=== PATIENT | male | born 1965 | race Caucasian/White ===

== ENCOUNTER 2017-10-01 08:21 | Inpatient (IN) ==
--- NOTE | 2017-10-01 08:09 | Anesthesia Evaluation PreOp ---
Date of Encounter: 10/01/17 Time of Encounter: 08:53 - Past History Planned Operation: Right Total Shoulder Cardiac History: HTN, Hyperlipidemia Pulmonary History: Former smoker (quit 2009, smoked for 30 years) FUR CLIPPER History: Denies Any Significant HX Other Medical History: GERD, Other (H/O DVT) Anesthesia History: No Prior Anesthetic Complications, Past Anesthesia Alcohol Use: rarely Drug use: marijuana Medications and Allergies Atazanavir Sulfate [Reyataz] 150 mg PO BID 07/14/16 [History] Citalopram Hydrobromide [Celexa] 40 mg PO DAILY 07/14/16 [History] Diclofenac Sodium [Voltaren] 1 appl TP QID PRN 07/14/16 [History] Donepezil HCl [Aricept] 10 mg PO DAILY 07/14/16 [History] Duloxetine HCl [Cymbalta] 30 mg PO DAILY 07/14/16 [History] Ketoconazole Shampoo [Nizoral Shampoo] 0 ml TP AD 07/14/16 [History] Lamivudine/Zidovudine [Combivir] 1 tab PO BID 07/14/16 [History] Oxycodone HCl [Roxicodone 30 MG Immed Release] 30 mg PO Q6HR 07/14/16 [History] Ranitidine HCl [Zantac] 150 mg PO BID 07/14/16 [History] Ritonavir [Norvir] 100 mg PO DAILY 07/14/16 [History] SUMAtriptan Succinate [Imitrex] 100 mg PO DAILY PRN 07/14/16 [History] hydrOXYzine HCl [Hydroxyzine HCl] 25 mg PO TID 07/14/16 [History] LORazepam [Ativan] 1 mg PO DAILY PRN 10/01/17 [History] Memantine [Namenda] 5 mg PO HS 10/01/17 [History] 3 Allergy/AdvReac Type Severity Reaction Status Date / Time codeine AdvReac Headache Verified 07/14/16 12:53 fentanyl AdvReac Headache Verified 07/14/16 12:52 - Meds/Allergy Pre-op Review Medications Reviewed: Yes Allergies Reviewed: Yes Beta Blockers on Current Med List: No Anesthesia Results - Labs Laboratory Tests 08/25/17 08/25/17 19:28 19:28 WBC 5.0 Hgb 13.0 Hct 38.2 Plt Count 217 Sodium 136 Potassium 4.4 BUN 11 Creatinine 0.94 - Imaging EKG: report reviewed (10/01/2017 SR) Additional studies: 10/02/2012 Echo * Normal left ventricular size and systolic function. * LVEF 60% * Normal right ventricular size and function. * No significant valvular dysfunction. * The estimated RVSP was 30 mmHg as estimated by Doppler. * There is no pulmonary hypertension. Anesthesia Exam O2 Sat Height 1.75 m Height 1.75 m Weight 77.111 kg Weight 77.111 kg O2 Sat by Pulse Oximetry 98 Vital Signs Temp Pulse Resp BP Pulse Ox 97.7 F 71 18 123/81 98 10/01/17 08:33 10/01/17 08:33 10/01/17 08:33 10/01/17 08:33 10/01/17 08:33 Height: 5'9'' Weight: 170 lbs NPO (# of Hours): 8 Pain Scale: 0 Pain Scale Used: Numeric (1 - 10) - HEENT Pupil (Motor): EOMI Mallampati: II Teeth: Poor dentition Oral Opening: Greater than 3 - FUR CLIPPER LOC: Oriented FUR CLIPPER Motor: Normal RUE, Normal LUE, Normal RLE, Normal LLE, Normal Face FUR CLIPPER Sensory: Normal: RUE, LUE, RLE, LLE, Face - Cardiac Rhythm: Regular Murmur: None - Pulmonary Breath Sounds: bilateral Clear Respiratory Effort: Symmetrical Anesthesia Assess/Plan ASA Score: 2 Modified [place] Scale for Level of Consciousness: Cooperative, oriented, and tranquil Anesthetic Plan: General, Regional Monitoring Plan: Standard Monitors Recovery Plan: PACU
[2017-10-01] MEDS ORDERED: *HR* Promethazine 25 MG/ML VIAL IVP PRN (08:47)
[2017-10-01] MEDS ORDERED: *HR* OxyCODONE Immed Rel 5 MG TABLET PO PRN (08:47)
[2017-10-01] MEDS ORDERED: *HR* Labetalol 100 MG/20 ML MDV IVP PRN (08:47)
[2017-10-01] MEDS ORDERED: MORPHINE SUL Oral CONC 10 MG/0.5 ML ORAL.SYG SL PRN (08:47)
[2017-10-01] MEDS ORDERED: *HR* Propofol 200 MG/20 ML VIAL IVP ONE (08:53)
[2017-10-01] MEDS ORDERED: *HR* Midazolam HCl 2 MG/2 ML VIAL ONE (08:53)
[2017-10-01] MEDS ORDERED: Ondansetron 4 MG/2 ML VIAL ONE (08:53)
[2017-10-01] MEDS ORDERED: CeFAZolin Syr 2,000MG/20 ML 2,000 MG/20 ML SYRINGE IVPB ONE (09:04)
[2017-10-01] MEDS ORDERED: Lidocaine -MPF 1% 2 ML VIAL ID ONE (09:04)
[2017-10-01] MEDS ORDERED: Albuterol 2.5 MG/3 ML NEBULIZER IH ONE (09:04)
[2017-10-01] MEDS: Ringers Solution, Lactated 1,000 ML IVC SCH ×3 (09:22→16:47)
--- NOTE | 2017-10-01 09:35 | History & Physical Report ---
Date of Encounter: 10/01/17 Time of Encounter: 09:35 24 Hour HP Update - Instructions Instructions: If the History and Physical is less than 30 days old and was completed prior to A.M. admission and or procedure and has NOT been updated on calendar day of procedure please complete this update prior to performing procedure. - Update Patient reports changes in Medical Condition: No Changes in examination, assessment, or condition: No Changes in Medication: No Preop tests/diagnostics Reviewed: Yes Surgery Remains Indicated: Yes Consent for Planned Operative Procedure(s) Verified: Yes - Pre-Operative Checklist Preoperative Checklist Indicated: No Prophylactic Antibiotic Ordered: Yes Is VTE Prophylaxis Indicated?: Yes
--- NOTE | 2017-10-01 09:37 | Discharge Summary ---
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 Qualifiers: Encounter type: subsequent encounter Qualified Code(s): T84.038D - Mechanical loosening of other internal prosthetic joint, subsequent encounter; Z96.619 - Presence of unspecified artificial shoulder joint; Z96.619 - Presence of unspecified artificial shoulder joint (2) Status post total replacement of right shoulder Priority: Secondary Status: Chronic (3) Hyperlipidemia Priority: Secondary Status: Chronic Qualifiers: Hyperlipidemia type: unspecified Qualified Code(s): E78.5 - Hyperlipidemia , unspecified (4) HIV (human immunodeficiency virus infection) Priority: Secondary Status: Chronic (5) Hypertension Priority: Secondary Status: Chronic Qualifiers: Hypertension type: unspecified Qualified Code(s): I10 - Essential (primary ) hypertension - Hospital Course Hospital course: Mr. Diaz is a 51 year old male Status post revision right total shoulder. The patient had an uneventful postoperative course. They received antibiotics and physical therapy and were discharged in stable condition. There will follow -up in the office in 2 weeks. - Time Spent with Patient Total time spent providing and/or coordinating discharge services: - Discharge Medications Home Medications: Atazanavir Sulfate [Reyataz] 150 mg PO BID 07/14/16 [History] Citalopram Hydrobromide [Celexa] 40 mg PO DAILY 07/14/16 [History] Diclofenac Sodium [Voltaren] 1 appl TP QID PRN 07/14/16 [History] Donepezil HCl [Aricept] 10 mg PO DAILY 07/14/16 [History] Duloxetine HCl [Cymbalta] 30 mg PO DAILY 07/14/16 [History] Ketoconazole Shampoo [Nizoral Shampoo] 0 ml TP AD 07/14/16 [History] Lamivudine/Zidovudine [Combivir] 1 tab PO BID 07/14/16 [History] Oxycodone HCl [Roxicodone 30] 30 mg PO Q6HR 07/14/16 [History] Ranitidine HCl [Zantac] 150 mg PO BID 07/14/16 [History] Ritonavir [Norvir] 100 mg PO DAILY 07/14/16 [History] SUMAtriptan Succinate [Imitrex] 100 mg PO DAILY PRN 07/14/16 [History] hydrOXYzine HCl [Hydroxyzine HCl] 25 mg PO TID 07/14/16 [History] LORazepam [Ativan] 1 mg PO DAILY PRN 10/01/17 [History] Memantine [Namenda] 5 mg PO HS 10/01/17 [History] Allergies/Adverse Reactions: 3 Allergy/AdvReac Type Severity Reaction Status Date / Time codeine AdvReac Headache Verified 07/14/16 12:53 fentanyl AdvReac Headache Verified 07/14/16 12:52 Primary care physician: Sin German MD - Patient Status Disposition: Home, Self-Care Condition: Good Functional capacity at discharge: independent ambulation Overall status at discharge: patient is progressing back to baseline - Discharge Instructions Follow Up With: Sin German MD [Primary Care Provider] -
[2017-10-01] MEDS ORDERED: *HR* Succinylcholine 200 MG/10 ML VIAL IVP ONE (10:20)
[2017-10-01] MEDS ORDERED: Lidocaine -MPF 2% 2 ML VIAL ONE (10:20)
[2017-10-01] MEDS ORDERED: ROPIVACAINE HCL/PF 0.5% 30 ML VIAL ONE (10:33)
[2017-10-01] MEDS ORDERED: Bupivacaine/Clonidine Syringe 1 EACH SYRINGE ONE (10:34)
[2017-10-01] MEDS ORDERED: Ethanol\\Acetic Acid\\Na Ace\\Ben 1,000 ML IRRIG.SOLN IR ONE (10:49)
[2017-10-01] MEDS ORDERED: Lidocaine -MPF 4% 5 ML AMPUL ONE (11:11)
--- NOTE | 2017-10-01 11:17 | Anesthesia Procedures ---
Date of Encounter: 10/01/17 Time of Encounter: 10:54 Procedures: Anesthesia - Nerve Block Procedure Date: 10/01/17 Time: 10:54 Surgical Procedure: right total shoulder revision Checklist: Correct Patient Identifier, Correct procedure, History checked Correct side: Right Blood Thinner: No Monitor Applied: BP, Pulse Oximetry Sedation: Versed (mg): 4 Indication: Post Op Analgesia Block Type: Supraclavicular Catheter placed: No Sterile Technique: Yes Ultrasound used: Yes Anatomy identified: Yes Visual spread of Local: Yes Neuro Stimulation: No Blood on Needle Aspiration: No Smooth Injection of Local: Yes Pain with Injection of Local: No Prep: Chlorhexadine Needle: 22 x 50 mm Stimuplex Local: 0.25% Bupivicaine w/Clonidine 20 mcg/cc (10 for SCP, 10 for T2), Ropivacaine (30ml 0.5% rop plain) Volume (cc): 50 Number of Attempts: 1 Complications: None/effective block Vitals: vss though out, block per request of surgeon
[2017-10-01] MEDS ORDERED: *HR* FentaNYL (PF) 100 MCG/2 ML VIAL ONE (11:45)
[2017-10-01] MEDS ORDERED: EPHEDrine 50 MG/ML VIAL ONE (11:54)
--- NOTE | 2017-10-01 12:17 | Orthopedic Operative Note ---
Date of procedure: 10/01/17 Pre-op diagnosis: Aseptic loosening right total shoulder Post-op diagnosis: same Procedure: Procedure: Right Revision Total Shoulder replacement reverse Estimated blood loss: 100 cc Hardware: Arthrex: Metal and plastic. Large glenoid baseplate, 24.5 screws and one 6.5 screw, 9 humeral stem 3 Wendy spacer Procedural Notes: Aseptic loosening humeral component. Operative procedure: The patient was brought to the operating room and placed on the operating room table. The patient was placed in the modified beachchair position. All pressure points were padded appropriately. And the head was stabilized in the neutral position. The operative extremity was prepped and draped in the sterile surgical fashion. The patient received IV antibiotics prior to skin incision. A standard deltopectoral approach was made to the operative shoulder. Incision was made through the old incision, through the skin and subcutaneous tissue, hemo stasis was obtained with Bovie cautery. Using careful blunt dissection the the deltopectoral interval was developed and the clavipectoral fascia was incised. An extensive debridement was performed, and the shoulder was dislocated. Using an osteotome to clear out the soft tissue, the humeral component was gently removed. It was grossly loose. Anterior and posterior Bankart retractors were used to expose the glenoid, the glenoid component was removed without incident using an osteotome. The glenoid guide was seated the centering hole was made the glenoid was reamed with the appropriate reamer. The glenoid baseplate was seated and secured and locked in place with one 6.5 screw and 2, 4.5 screws. The baseplate was irrigated and dried glenosphere was seated and secured. Attention was then turned to the humeral side. The humerus was reamed and broached up to its appropriate size 9 in 20 degrees of retroversion. Trial reduction found the shoulder to be relocatable. Trial components were removed, real implants were seated. Trial reduction found the shoulder to be stable with the appropriate 3 Wendy implant The trial implants were removed the real implants were seated and secured in the shoulder was reduced. The patient had excellent motion and excellent stability no shuck. The deep tissue was irrigated with pulse irrigation deltopectoral interval was closed with #2 PDS suture . Superficially the subcutaneous tissue was closed with 0 PDS suture, the skin was closed with skin harlan. The patient placed sterile dressing, postoperative brace extubated and transferred to the recovery room in stable condition. Anesthesia: GETA Surgeon: Ellis Moya Was there an office support assistant present: No Estimated blood loss (cc): 100 Condition: stable Disposition: PACU
[2017-10-01 12:43] LABS: Hematocrit 36.3 % (37.5-50.1); Hemoglobin 12.3 g/dL (12.9-16.9)
--- NOTE | 2017-10-01 13:00 | Anesthesia Evaluation Post Op ---
Date of Encounter: 10/01/17 Time of Encounter: 12:59 - Vital Signs Vital Signs: Vital Signs/O2 Sat, Most Current Temp Pulse Resp BP Pulse Ox 98.2 F 73 16 126/83 98 10/01/17 12:24 10/01/17 12:44 10/01/17 12:44 10/01/17 12:44 10/01/17 12:44 - Lungs Lungs: Clear Ascult./Percussion - Airway Airway: Non-obstructed - Cardiovascular Regular Rate - Mental Status Mental Status: Alert & Oriented, Answers Appropriately - Pain Pain Scale: 0 Pain Scale used: Numeric (1 - 10) - Nausea Vomiting Nausea Vomiting: Not Present - Hydration Hydration: NPO, Has not voided - Discharge PostOp Status: Transfer Patient to floor
[2017-10-01] MEDS ORDERED: Sennosides 8.6 MG TABLET PO PRN (13:43)
[2017-10-01] MEDS ORDERED: Ondansetron 4 MG/2 ML VIAL IVP PRN (13:43)
[2017-10-01] MEDS ORDERED: MOM Conc 10 ML UD.LIQ PO PRN (13:43)
[2017-10-01] MEDS ORDERED: SUMAtriptan succinate 50 MG TABLET PO PRN (13:43)
[2017-10-01] MEDS ORDERED: Temazepam 15 MG CAPSULE PO PRN (13:43)
[2017-10-01] MEDS ORDERED: *HR* LORazepam 1 MG TABLET PO PRN (13:43)
[2017-10-01] MEDS ORDERED: Naloxone 0.4 MG/ML INJ IVP PRN (13:43)
[2017-10-01] MEDS: hydrOXYzine pamoate 25 MG CAPSULE PO SCH ×2 (14:51→21:25)
--- NOTE | 2017-10-01 15:50 | Electrocardiograph Report ---
[place] [id number] Test Date: 2017-10-01 Pat Name: Raul Diaz Department: 106 Room: [facility] Gender: M Academic Services Coordinator: AALIYAH : 1965 Requested By: Kameron Whitney Order Number: [id number] Reading MD: Selina Stauffer Measurements Intervals [place] Rate: 74 P: 35 NH: 177 QRS: 13 QRSD: 98 T: 34 QT: 400 QTc: 428 Interpretive Statements SINUS RHYTHM Electronically Signed On 10-01-2017 15:48:23 EDT by Selina Stauffer
[2017-10-01] MEDS: *HR* OxyCODONE Immed Rel 15 MG TABLET PO SCH ×2 (16:45→23:04)
[2017-10-01] MEDS: *HR* Enoxaparin 30 MG/0.3 ML SYRINGE SQ SCH (16:45)
[2017-10-01] MEDS ORDERED: *HR* Enoxaparin 30 MG/0.3 ML SYRINGE SQ SCH (18:00)
[2017-10-01] MEDS ORDERED: CeFAZolin Pre 2,000 MG/100 ML 2,000 MG/100 ML BAG IVPB SCH (20:00)
[2017-10-01] MEDS: Famotidine 20 MG TABLET PO SCH (21:25)
[2017-10-01] MEDS: traMADol 50 MG TABLET PO PRN (21:25)
[2017-10-01] MEDS: ceFAZolin 2,000 MG in 0.9 % Sodium Chloride 100 ML IVPB SCH (21:26)
[2017-10-02] MEDS: ATAZANAVIR SULFATE PO SCH ×2 (00:13→08:41)
[2017-10-02 01:22] LABS: Hematocrit 36.1 % (37.5-50.1); Hemoglobin 12.8 g/dL (12.9-16.9)
[2017-10-02] MEDS: traMADol 50 MG TABLET PO PRN ×2 (04:00→10:18)
[2017-10-02] MEDS: ceFAZolin 2,000 MG in 0.9 % Sodium Chloride 100 ML IVPB SCH (04:06)
[2017-10-02] MEDS: *HR* OxyCODONE Immed Rel 15 MG TABLET PO SCH ×2 (05:14→12:07)
[2017-10-02] MEDS: Ringers Solution, Lactated 1,000 ML IVC SCH (05:15)
[2017-10-02] MEDS: *HR* Enoxaparin 30 MG/0.3 ML SYRINGE SQ SCH (05:15)
--- NOTE | 2017-10-02 06:23 | Orthopedics Progress Note ---
Date of Encounter: 10/02/17 Time of Encounter: 06:23 - Assessment and Plan (1) Loosening of total shoulder replacement Current Visit: Yes Status: Chronic Qualifiers: Encounter type: subsequent encounter Qualified Code(s): T84.038D - Mechanical loosening of other internal prosthetic joint, subsequent encounter; Z96.619 - Presence of unspecified artificial shoulder joint; Z96.619 - Presence of unspecified artificial shoulder joint (2) Status post total replacement of right shoulder Current Visit: Yes Status: Chronic (3) Hyperlipidemia Current Visit: Yes Status: Chronic Qualifiers: Hyperlipidemia type: unspecified Qualified Code(s): E78.5 - Hyperlipidemia , unspecified (4) HIV (human immunodeficiency virus infection) Current Visit: Yes Status: Chronic (5) Hypertension Current Visit: Yes Status: Chronic Qualifiers: Hypertension type: unspecified Qualified Code(s): I10 - Essential (primary ) hypertension Subjective Interval history: Patient was seen this morning doing well without complaints. Afebrile vital signs stable. Operative extremity: Neurovascularly intact Dressing clean dry and intact Calves nontender Assessment and plan: Continue with postoperative care Hematocrit 36 discharged today Objective Vital signs: Vital Signs Temp Pulse Resp BP Pulse Ox 10/02/17 03:54 99.3 F 95 16 131/80 95 10/01/17 22:57 98.8 F 106 16 116/74 100 10/01/17 18:49 98.9 F 102 16 103/68 93 10/01/17 16:47 98.0 F 97 20 133/87 97 10/01/17 15:30 98.2 F 98 14 113/76 97 10/01/17 14:25 98.1 F 86 18 117/78 98 10/01/17 13:55 98.0 F 97 20 144/95 99 10/01/17 13:40 97.6 F 83 18 130/92 94 10/01/17 12:54 98.7 F 88 16 134/89 99 10/01/17 12:44 73 16 126/83 98 10/01/17 12:34 72 19 126/84 99 10/01/17 12:24 98.2 F 90 12 129/81 100 10/01/17 10:52 84 16 112/82 95 10/01/17 10:30 78 16 117/81 96 10/01/17 09:06 97.7 F 71 18 123/81 98 10/01/17 08:33 97.7 F 71 18 123/81 98 Intake and Output 10/01/17 10/01/17 10/02/17 15:59 23:59 07:59 Intake Total 1000 / 1000 620 / 620 1000 / 1000 Output Total 750 / 750 650 / 650 700 / 700 Balance 250 / 250 -30 / -30 300 / 300 Intake: IV Fluids 1000 / 1000 100 / 100 1000 / 1000 Lactated Ringers 1,000 ML @ 75 1000 / 1000 1000 / 1000 mls/hr IVC .[id number] [facility] Rx#: [id number] Ancef 2,000 MG In 0.9 % Sodium 100 / 100 Chloride 100 ML @ 200 mls/hr IVPB Q8H [facility] Rx#:[id number] Oral 520 / 520 Output: Urine 650 / 650 650 / 650 700 / 700 Estimated Blood Loss 100 / 100 Other: Meal Dinner Percent of Meal Consumed 75% # Voids 3 Weight 77.111 kg - Labs CBC & BMP: 10/02/17 01:01 Labs: Abnormal lab results Hgb 12.8 g/dL (12.9-16.9) L 10/02/17 01:01 Hct 36.1 % (37.5-50.1) L 10/02/17 01:01 - VTE Documentation of Mechanical Device: Venous foot pump, device Consult Discharge Plan - Plan Referrals: Sin German MD [Primary Care Provider] -
[2017-10-02] MEDS: hydrOXYzine pamoate 25 MG CAPSULE PO SCH (08:39)
[2017-10-02] MEDS: Famotidine 20 MG TABLET PO SCH (08:40)
--- NOTE | 2017-10-02 08:46 | Event Note ---
Date of Encounter: 10/02/17 Time of Encounter: 08:15 PCR- POD#1 s/p R TSR reverse 10/01/17 [facility] PCR - Patient seen at bedside. Labwork and medications reviewed. Pain control: Adequate - patient c/o pain in anterior shoulder -spasm noted - will trial lidoderm patch Participating in PT. All questions and concerns addressed. Educated on use of incentive spirometer, ambulation, and hydration. Patient educated on post-operative restrictions and care. Addressed: see above. D/C plan: Home with home health today
[2017-10-02] MEDS ORDERED: tiZANidine 4 MG TABLET PO PRN (08:47)
--- NOTE | 2017-10-02 08:50 | Physician Discharge Referral ---
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 For more information, call the [place] Tobacco Quit Line at 9-015-GSSR-NOW. - Dressing/Wound Care Site: right shoulder Type of Dressing/Treatments w/Frequency: Opsite placed. Keep dressing intact until first follow up appointment. If > 50% saturated, notify office, remove dressing and place appropriate dressing back in place. Leave Zipline intact. Opsite dressing is water resistant, not water- proof. OK to shower, but do not get dressing wet. - Diet/Nutrition Diet/Nutrition Orders: Regular - Activity Activity Orders: Up ad aisha, Ambulate, Chair Activity: List: PT/OT. NWB to affected upper extremity. Follow Shoulder Precautions x 6 weeks. Stay in brace during activity and at night. Remove brace during exercises. ICE and elevate extremity frequently throughout the day. - Services Needed Following services are medically necessary services: Nursing, Home Health Aide, Physical Therapy, Occupational Therapy - Transfer Medications Home Medications: Atazanavir Sulfate [Reyataz] 150 mg PO BID 07/14/16 [History] Citalopram Hydrobromide [Celexa] 40 mg PO DAILY 07/14/16 [History] Diclofenac Sodium [Voltaren] 1 appl TP QID PRN 07/14/16 [History] Donepezil HCl [Aricept] 10 mg PO DAILY 07/14/16 [History] Duloxetine HCl [Cymbalta] 30 mg PO DAILY 07/14/16 [History] Ketoconazole Shampoo [Nizoral Shampoo] 0 ml TP AD 07/14/16 [History] Lamivudine/Zidovudine [Combivir] 1 tab PO BID 07/14/16 [History] Oxycodone HCl [Roxicodone 30] 30 mg PO Q6HR 07/14/16 [History] Ranitidine HCl [Zantac] 150 mg PO BID 07/14/16 [History] Ritonavir [Norvir] 100 mg PO DAILY 07/14/16 [History] SUMAtriptan Succinate [Imitrex] 100 mg PO DAILY PRN 07/14/16 [History] hydrOXYzine HCl [Hydroxyzine HCl] 25 mg PO TID 07/14/16 [History] LORazepam [Ativan] 1 mg PO DAILY PRN 10/01/17 [History] Memantine [Namenda] 5 mg PO HS 10/01/17 [History] Allergies/Adverse Reactions: 3 Allergy/AdvReac Type Severity Reaction Status Date / Time codeine AdvReac Headache Verified 07/14/16 12:53 fentanyl AdvReac Headache Verified 07/14/16 12:52 Certification: Further, I certify that my clinical findings support that this patient is homebound (i.e. absences from home require considerable and taxing effort and are for medical reasons or hoahaoism services or infrequently or short duration when for other reasons) because: Homebound Reason: Post-surgery restriction and or conditions limit ability to leave home Attestation: My signature below is to certify that this patient is under my care and that I, or nurse practitioner, or a physician program support assistant working with me, has a face-to- face encounter with this patient.
[2017-10-02] MEDS ORDERED: RITONAVIR 100 MG PO SCH (09:00)
[2017-10-02 11:16] VITALS: BP 135/88
== END 2017-10-02 13:33 | disposition home or self-care (01) | DRG 483 ==
LOC: SAMDAY 08:21 → 3NENU 13:21
PROVIDERS: ADMIT Orthopaedic Surgery; ATTEND Orthopaedic Surgery

== ENCOUNTER 2020-12-24 16:48 | Observation (INO) ==
[2020-12-24] MEDS ORDERED: *HR* LORazepam 1 MG TABLET PO PRN (20:05)
[2020-12-24] MEDS ORDERED: *HR* Heparin 5,000 UNIT/ML VIAL IVP PRN ×2 (20:10)
[2020-12-24] MEDS ORDERED: Ondansetron 4 MG/2 ML VIAL IVP PRN (20:11)
[2020-12-24] MEDS ORDERED: Naloxone 0.4 MG/ML INJ IVP PRN (20:11)
[2020-12-24] MEDS ORDERED: Melatonin 3 MG TABLET PO PRN (20:11)
[2020-12-24] MEDS ORDERED: Heparin 25,000UNIT/250ML 1/2NS 25,000 UNIT/250 ML IV.SOLN IVC SCH (20:15)
[2020-12-24] MEDS ORDERED: SUMAtriptan succinate 50 MG TABLET PO PRN (20:49)
[2020-12-24] MEDS: Famotidine 20 MG TABLET PO SCH (20:57)
[2020-12-24] MEDS: *HR* OxyCODONE Immed Rel 15 MG TABLET PO SCH (23:53)
[2020-12-25 03:04] LABS: Basophils % 0.6 %; Eosinophils # 0.1 K/mcL (0.0-0.6); Eosinophils % 0.9 %; Hematocrit 45.2 % (37.5-50.1); Hemoglobin 14.4 g/dL (12.9-16.9); Immature Granulocytes % 0.9 % (0-4); Lymphocytes # 3.8 K/mcL (0.6-4.6); Lymphocytes % 55.6 %; Mean Corpuscular HGB Conc 31.9 g/dL (31.6-35.5); Mean Corpuscular Hemoglobin 29.9 pg (28.0-33.3); Mean Corpuscular Volume 93.8 fL (83.0-100.0); Mean Platelet Volume 9.4 fL (9.4-12.4); Monocytes # 0.8 K/mcL (0.0-1.3); Monocytes % 12.1 %; Platelet Count 228 K/mcL (140-400); Red Blood Count 4.82 M/mcL (4.19-5.50); Red Cell Distribution Width 14.4 % (11.5-14.5); Segmented Neutrophils % 29.9 %; White Blood Count 6.8 K/mcL (4.3-11.1)
[2020-12-25 03:25] LABS: BUN/Creatinine Ratio 10 (6-26); Blood Urea Nitrogen 9 mg/dL (6-20); Calcium 8.5 mg/dL (8.6-10.3); Carbon Dioxide 27 mEq/L (23-29); Chloride 102 mEq/L (98-107); Glucose 90 mg/dL (70-105); Osmolality,Calculated 278 (280-300); Potassium 4.6 mEq/L (3.5-5.1); Sodium 135 mEq/L (136-145); eGFR For African Americans > 60 (> 60); eGFR For Non-African Americans > 60 (> 60)
[2020-12-25] MEDS: Famotidine 20 MG TABLET PO SCH ×2 (06:00→16:30)
[2020-12-25] MEDS: *HR* OxyCODONE Immed Rel 15 MG TABLET PO SCH ×2 (06:00→11:14)
[2020-12-25] MEDS ORDERED: SUMAtriptan 6 MG/0.5 ML SQ ONE (06:04)
[2020-12-25] MEDS ORDERED: Multivit/Ca/Min/Fe/FA 1 TAB TABLET PO SCH (09:00)
[2020-12-25] MEDS ORDERED: Isovue-370 500 ML BOTTLE IVP ONE (13:26)
[2020-12-25] MEDS ORDERED: *HR* OxyCODONE Immed Rel 15 MG TABLET PO SCH (16:15)
[2020-12-25 16:24] VITALS: BP 129/70; PULSE 75; TEMP 97.8; O2SAT 90
[2020-12-26] MEDS ORDERED: *HR* Enoxaparin 40 MG/0.4 ML SYRINGE SQ SCH (06:00)
== END 2020-12-25 19:27 | disposition home or self-care (01) ==
LOC: 3ANU → SUATTDRO 18:44
PROVIDERS: ADMIT Internal Medicine; ATTEND Internal Medicine